=== PATIENT | female | born 1985 ===

== ENCOUNTER 2022-03-02 10:55 | Outpatient (CLI) | payer OTHER | END 2022-03-02 12:08 | disposition home or self-care (01) | LOC: PRENATAL 10:55 | PROVIDERS: ATTEND Obstetrics & Gynecology Maternal & Fetal Medicine | DX: Z76.1 Encounter for health supervision and care of foundling (principal) ==

== ENCOUNTER 2022-05-04 18:33 | Outpatient (CLI) | payer OTHER | END 2022-05-04 18:55 | disposition home or self-care (01) | LOC: NST 18:33 | PROVIDERS: ATTEND Obstetrics & Gynecology Maternal & Fetal Medicine | DX: Z34.83 Encounter for supervision of other normal pregnancy, third trimester (principal) ==

== ENCOUNTER 2022-06-02 12:00 | Outpatient (CLI) | payer OTHER | END 2022-06-02 12:56 | disposition home or self-care (01) | LOC: NST 12:00 | PROVIDERS: ATTEND Obstetrics & Gynecology Maternal & Fetal Medicine | DX: Z34.82 Encounter for supervision of other normal pregnancy, second trimester (principal) ==

== ENCOUNTER 2022-06-23 12:41 | Outpatient (CLI) | payer OTHER | END 2022-06-23 13:42 | disposition home or self-care (01) | LOC: NST 12:41 | PROVIDERS: ATTEND Obstetrics & Gynecology Maternal & Fetal Medicine | DX: Z34.83 Encounter for supervision of other normal pregnancy, third trimester (principal) ==

== ENCOUNTER 2022-06-27 15:10 | Outpatient (CLI) | payer OTHER | END 2022-06-27 16:20 | disposition home or self-care (01) | LOC: NST 15:10 | PROVIDERS: ATTEND Obstetrics & Gynecology | DX: Z34.83 Encounter for supervision of other normal pregnancy, third trimester (principal) ==

== ENCOUNTER → 2022-07-04 08:41 | Outpatient (CLI) | payer OTHER | END | disposition home or self-care (01) | LOC: NST 08:41 | PROVIDERS: ATTEND Obstetrics & Gynecology Gynecology | DX: Z34.83 Encounter for supervision of other normal pregnancy, third trimester (principal) ==

== ENCOUNTER 2022-07-20 08:46 | Outpatient (CLI) | payer OTHER | END 2022-07-20 09:27 | disposition home or self-care (01) | LOC: NST 08:46 | PROVIDERS: ATTEND Obstetrics & Gynecology Maternal & Fetal Medicine | DX: Z34.83 Encounter for supervision of other normal pregnancy, third trimester (principal) ==

== ENCOUNTER 2022-07-27 04:56 | Inpatient (IN) | payer OTHER ==
[~2022-07-27] VITALS: Ht 152.4 cm; Wt 1.8 kg
[2022-07-27] MEDS ORDERED: PRENATAL TABLE1 EAC1 PO (05:43)
[2022-07-27] MEDS ORDERED: NIFEDIPINE20 MG PO (05:43)
[2022-07-27] MEDS ORDERED: IRON325 MG PO (05:44)
== END 2022-07-31 15:32 | disposition home or self-care (01) | DRG 785 ==
LOC: LDR 04:56 → OB/GYN 04:56 → O/R 04:56 → OB/GYN 13:56
PROVIDERS: ADMIT Obstetrics & Gynecology Maternal & Fetal Medicine; ATTEND Obstetrics & Gynecology Maternal & Fetal Medicine
PROC: 0UB70ZZ Excision of Bilateral Fallopian Tubes, Open Approach (ICD-10-PCS; 2022-07-27)
PROC: 4A1HXCZ Monitoring of Products of Conception, Cardiac Rate, External Approach (ICD-10-PCS; 2022-07-27)
PROC: 10D00Z1 Extraction of Products of Conception, Low, Open Approach (ICD-10-PCS; principal; 2022-07-27 16:30)
DX: O60.14X2 Preterm labor third trimester with preterm delivery third trimester, fetus 2 (principal); O30.043 Twin pregnancy, dichorionic/diamniotic, third trimester; Z3A.35 35 weeks gestation of pregnancy; Z37.2 Twins, both liveborn; Z30.2 Encounter for sterilization; Z20.822 Contact with and (suspected) exposure to COVID-19

== ENCOUNTER 2022-08-16 07:35 | Outpatient (CLI) | payer OTHER ==
[~2022-08-16 07:35] MED LIST: IRON325 MG PO; NIFEDIPINE20 MG PO; PRENATAL TABLE1 EAC1 PO
== END 2022-08-16 07:39 | disposition home or self-care (01) ==
LOC: NUCLEAR 07:35
PROVIDERS: ATTEND Obstetrics & Gynecology Gynecology
DX: I82.403 Acute embolism and thrombosis of unspecified deep veins of lower extremity, bilateral (principal)